=== PATIENT | male | born 1985 | race African-American/Black ===

== ENCOUNTER 2017-07-07 03:58 | Emergency (ER) | payer OTHER ==
[~2017-07-07] VITALS: Ht 177.8 cm; Wt 88.9 kg
[2017-07-07 04:46] LABS: BASOPHIL# 0.1 X10e3 (0-0.3); BASOPHIL% 0.8 % (0-2.5); EOSINOPHIL# 0.3 X10e3 (0-0.7); EOSINOPHIL% 4.4 % (0.0-7.0); HEMATOCRIT 40.8 % (38.0-50.0); HEMOGLOBIN 14.3 gm/dL (13.0-16.0); LYMPHOCYTE# 3.4 X10e3 (1.0-3.5); LYMPHOCYTE% 50.7 % (17.0-45.0); MEAN CORPUSCULAR HEMOGLOBIN 31.3 PG (28-34); MEAN CORPUSCULAR HGB CONC 35.1 g/dL (30-36); MEAN PLATELET VOLUME 7.6 FL (6.5-11.5); MONOCYTE# 0.7 X10e3 (0-1.0); MONOCYTE% 10.6 % (3.0-12.0); NEUTROPHIL# 2.3 X10e3 (1.5-7.1); NEUTROPHIL% 33.5 % (40-75); PLATELET COUNT 218 X10e3 (140-420); RED BLOOD COUNT 4.59 X10e (3.90-5.60); RED CELL DISTRIBUTION WIDTH 13.2 % (11.0-15.5); WHITE BLOOD COUNT 6.7 X10e3 (4.0-10.5)
[2017-07-07 04:47] LABS: DIFF IND YES
[2017-07-07 05:02] LABS: ANISOCYTOSIS SL; PLATELET ESTIMATE NORMAL (NORMAL)
[2017-07-07 05:21] LABS: BILIRUBIN, DIRECT 0.1 mg/dL (0.0-0.2); BILIRUBIN,INDIRECT 0.5 mg/dL (0.0-0.9); BILIRUBIN,TOTAL 0.6 mg/dL (0.2-2.0); BUN/CREATININE RATIO 13.75; CREATININE SERUM 0.8 mg/dL (0.6-1.4); POTASSIUM 3.1 mmol/L (3.5-5.1); PROTEIN TOTAL SERUM 8.1 g/dL (6.0-8.3)
[2017-07-07 05:34] LABS: INR 0.9; PARTIAL THROMBOPLASTIN TIME 25.9 SECONDS (23.5-31.3); PROTHROMBIN TIME (PATIENT) 10.3 SECONDS (10.0-11.7)
== END 2017-07-07 06:07 | disposition home or self-care (01) ==
LOC: CED 03:58
PROVIDERS: Emergency Medicine
DX: R04.0 Epistaxis (principal); F17.200 Nicotine dependence, unspecified, uncomplicated
CPT/HCPCS: 30901; 36415; 80048; 80076; 85025; 85610; 85730; 99283